=== PATIENT | female | born 1980 | race Two or more races ===

== ENCOUNTER 2025-07-20 09:21 | Emergency (ER) | payer OTHER ==
[~2025-07-20] VITALS: Ht 152.4 cm; Wt 87.3 kg
--- NOTE | 2025-07-20 09:58 | ED.PDOC ---
GI ASSESSMENT HPI Comments 44 year old female presents to the ED with a chief complaint of abdominal pain onset 1 day. Patient states she had a beer yesterday, shortly after began experiencing lower abdominal pain, currently rates pain 03/18. Since then pain has been constant, this morning she noticed blood in stool and is also experiencing nausea, chills. LMP 07/06/25. Denies fever, vomiting, diarrhea, headache, dizziness, chest pain, shortness of breath, dysuria, hematuria, hematemesis, melena. No other symptoms or modifying factors present at this time. 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 History Family History Family History: Reviewed,noncontributory to illness, No family hx of Cancer, No family hx of DM, No family hx of Heart capo, No family hx of HTN, No family hx ofKidney capo, No family hx of Liver capo, No family hx of Lung capo, No family hx of Stroke Social History Smoker: Non-Smoker Alcohol: Occasionally Drugs: Denies Drug Use Lives In: Home Constitutional: denies: chills, diaphoresis, fatigue, fever, malaise, sweats, weakness, others EENTM: denies: blurred vision, double vision, ear bleeding, ear discharge, ear drainage, ear pain, ear ringing, eye pain, eye redness, hearing loss, mouth pain, mouth swelling, nasal discharge, nose bleeding, nose congestion, nose pain, photophobia, tearing, throat pain, throat swelling, voice changes, others Respiratory: denies: cough, hemoptysis, orthopnea, SOB at rest, shortness of breath, SOB with excertion, stridor, wheezing, others Cardiovascular: denies: chest pain, dizzy spells, diaphoresis, Dyspnea on exertion, edema, irregular heart beat, left arm pain, lightheadedness, palpitations, PND, syncope, others Gastrointestinal: reports: abdominal pain, rectal bleeding; denies: abdomen distended, blood streaked bowels, constipated, diarrhea, dysphagia, difficulty swallowing, hematemesis, melena, nausea, poor appetite, poor fluid intake, rectal pain, vomiting, others Genitourinary: denies: abnormal vagina bleeding, burning, dyspareunia, dysuria, flank pain, frequency, hematuria, incontinence, pain, , vagina discharge, urgency, others Neurological: denies: dizziness, fainting, headache, left sided numbness, left sided weakness, numbness, paresthesia, pre-existing deficit, right sided numbness, right sided weakness, seizure, speech problems, tingling, tremors, weakness, others Musculoskeletal: denies: back pain, gout, joint pain, joint swelling, muscle pain, muscle stiffness, neck pain, others Integumetry: denies: bruises, change in color, change in hair/nails, dryness, laceration, lesions, lumps, rash, wounds, others Allergic/Immunocompromised: denies: Difficulty Healing, Frequent Infections, Hives, Itching, others Hematologic/Lymphatic: denies: anemia, blood clots, easy bleeding, easy bruising, swollen glands, others Endocrine: denies: excessive hunger, excessive sweating, excessive thirst, excessive urination, flushing, intolerance to cold, intolerance to heat, unexplained weight gain, unexplained weight loss, others Psychiatric: denies: anxiety, bipolar disorder, depression, hopeless, panic disorder, schizophrenia, sleepless, suicidal, others All Other Systems: Reviewed and Negative Physical Exam General Appearance: Normal HEENT: Normal ENT Inspection, Pharynx Normal, TMs Normal Neck: Full Range of Motion, Non-Tender, Normal, Normal Inspection Respiratory: Chest Non-Tender, Lungs Clear, No Accessory Muscle Use, No Respiratory Distress, Normal Breath Sounds Cardiovascular: No Edema, No JVD, No Murmur, No Gallop, Normal Peripheral Pulses, Regular Rate/Rhythm Breast Exam: Deferred Gastrointestinal: No Organomegaly, Non Tender, No Pulsatile Mass, Normal Bowel Sounds, Soft Genitalia: Deferred Pelvic: Deferred Rectal: Deferred Extremities: No calf tenderness, Normal capillary refill, Normal inspection, Normal range of motion, Non-tender, No pedal edema Musculoskeletal : Apperance: Normal Neurologic: Alert, sample display preparer II-XII nml as Tested, No Motor Deficits, Normal Affect, Normal Mood, No Sensory Deficits Cerebellar Function: Normal Reflexes: Normal Skin: Dry, Normal Color, Warm Lymphatic: No Adenopathy Was a procedure done? Was a procedure done?: No GI differential Dx Differential Diagnosis: Gastritis/PUD, Gastroenteritis, Inflammatory BD, UTI, Electrolyte Imbalance X-Ray, Labs, Meds, VS Vital Signs Date Time Temp Pulse Resp B/P (MAP) Pulse Ox O2 Delivery O2 Flow Rate FiO2 07/20/25 15:31 98.0 67 16 146/78 (100) 100 98.0 07/20/25 12:59 97.9 69 16 149/79 (102) 100 97.9 07/20/25 10:50 97.9 78 16 132/89 (103) 95 97.9 07/20/25 09:24 97.8 78 18 136/87 98 97.8 Lab Test 07/20/25 15:55 07/20/25 10:00 Range/Units Urine Color Yellow Yellow Urine Clarity Turbid H Clear Urine pH 5.5 5.0-9.0 Urine Specific [place] 1.025 1.001-1.035 Urine Protein Trace H Negative Urine Ketones 1+ H Negative Urine Blood 1+ H Negative /uL Urine Nitrite Negative Negative Urine Bilirubin Negative Negative Urine Urobilinogen Normal Negative mg/dL Urine Leukocyte Esterase Negative Negative /uL Urine RBC 2 0 - 4 /hpf Urine Microscopic WBC < 1 0-5 /HPF Urine Squamous Epithelial Cells Few <5 /hpf Urine Bacteria None seen None Seen /hpf Urine Mucus Few None Seen Urine Glucose Normal Normal mg/dL Urine Test Negative Negative White Blood Count 11.0 H 4.4-10.8 10^3/uL Red Blood Count 4.50 4.0-5.20 10^6/uL Hemoglobin 13.9 12.2-16.2 g/dL Hematocrit 40.9 36.0-46.0 % Mean Corpuscular Volume 90.8 80.0-100.0 fL Mean Corpuscular Hemoglobin 30.8 28.0-32.0 pg Mean Corpuscular Hemoglobin Concent 33.9 32.0-36.0 g/dL Red Cell Distribution Width 12.5 11.8-14.3 % Platelet Count 342 140-450 10^3/uL Mean Platelet Volume 8.6 6.9-10.8 fL Neutrophils (%) (Auto) 87.5 H 37.0-80.0 % Lymphocytes (%) (Auto) 8.4 L 10.0-50.0 % Monocytes (%) (Auto) 3.7 0.0-12.0 % Eosinophils (%) (Auto) 0.1 0.0-7.0 % Basophils (%) (Auto) 0.3 0.0-2.0 % Neutrophils # (Auto) 9.7 H 1.6-8.6 10 ^3/uL Lymphocytes # (Auto) 0.9 0.4-5.4 10 ^3/uL Monocytes # (Auto) 0.4 0-1.3 10 ^3/uL Eosinophils # (Auto) 0 0-0.8 10 ^3/uL Basophils # (Auto) 0 0-0.2 10 ^3/uL Nucleated Red Blood Cells 0.1 % Sodium Level 139 136-145 mmol/L Potassium Level 3.8 3.5-5.1 mmol/L Chloride Level 101 98-107 mmol/L Carbon Dioxide Level 23 20-31 mmol/L Anion Gap 15 5-15 Blood Urea Nitrogen 6 L 9-23 mg/dL Creatinine 0.65 0.550-1.02 mg/dL Glomerular Filtration Rate Calc 111 >90 mL/min BUN/Creatinine Ratio 9.2 L 10.0-20.0 Serum Glucose 112 H 74-106 mg/dL Calcium Level 9.4 8.7-10.4 mg/dL Total Bilirubin 0.5 0.2-1.0 mg/dL Aspartate Amino Transferase (AST) 16 13-40 U/L Alanine Aminotransferase (ALT) 12 7-40 U/L Alkaline Phosphatase 56 46-116 U/L Total Protein 7.7 5.7-8.2 g/dL Albumin 4.6 3.2-4.8 g/dL Lipase 29 12-53 U/L Current Medications Medications (Trade) Dose Ordered Sig/Wilma Route Start Time Stop Time Status Last Admin Sodium Chloride 1,000 ml @ 1,000 mls/hr Q1H ONCE IV 07/20/25 10:00 07/20/25 10:59 DC 07/20/25 10:00 Ondansetron HCl (Zofran) 4 mg ONCE ONCE IV 07/20/25 10:00 07/20/25 10:01 DC 07/20/25 10:00 Ketorolac Tromethamine (Toradol Injection) 15 mg ONCE ONCE IV 07/20/25 10:00 07/20/25 10:01 DC 07/20/25 10:00 Acetaminophen (Tylenol Tablet Or Capsule) 1,000 mg ONCE ONCE PO 07/20/25 15:45 07/20/25 15:46 DC 07/20/25 16:03 Al Hydrox/Mg Hydrox/Simethicone (Maalox Plus) 30 ml ONCE ONCE PO 07/20/25 15:45 07/20/25 15:46 DC 07/20/25 16:02 Famotidine (Pepcid Tablet) 20 mg ONCE ONCE PO 07/20/25 15:45 07/20/25 15:46 DC 07/20/25 16:02 Time of 1ST Reevaluation: 10:10 Reevaluation 1ST: Unchanged Time of 2ND Reevaluation: 18:26 Reevaluation 2ND: Improved Patient Education/Counseling: Diagnosis, Treatment, Prognosis Family Education/Counseling: No Family Present SEPSIS Sepsis Screen Date sepsis recognized/suspect: Jul 20, 2025 Time Sepsis recognized/suspect: 927 Recent Procedure: No On Antibiotic Therapy: No Respiratory Rate >20: No Heart Rate >90: No Temp<36 C (96.8 F) or >38.3 C: No SBP <90 or MAP <65 mmHG: No New Acute Mental Status Change: No Is the patient on CPAP, BIPAP,: No Physician Orders Ct Ab Pel Wo Con-No Oral Or Iv (07/20/25 12:59) Vital Signs Date Time Temp Pulse Resp B/P (MAP) Pulse Ox O2 Delivery O2 Flow Rate FiO2 07/20/25 15:31 98.0 67 16 146/78 (100) 100 98.0 07/20/25 12:59 97.9 69 16 149/79 (102) 100 97.9 07/20/25 10:50 97.9 78 16 132/89 (103) 95 97.9 07/20/25 09:24 97.8 78 18 136/87 98 97.8 Laboratory Tests Test 07/20/25 10:00 White Blood Count 11.0 10^3/uL (4.4-10.8) H Medications Medications Dose Ordered Sig/Wilma Route Start Time Stop Time Status Last Admin Dose Admin Acetaminophen 1,000 mg ONCE ONCE PO 07/20/25 15:45 07/20/25 15:46 DC 07/20/25 16:03 Al Hydrox/Mg Hydrox/Simethicone 30 ml ONCE ONCE PO 07/20/25 15:45 07/20/25 15:46 DC 07/20/25 16:02 Famotidine 20 mg ONCE ONCE PO 07/20/25 15:45 07/20/25 15:46 DC 07/20/25 16:02 Ketorolac Tromethamine 15 mg ONCE ONCE IV 07/20/25 10:00 07/20/25 10:01 DC 07/20/25 10:00 Ondansetron HCl 4 mg ONCE ONCE IV 07/20/25 10:00 07/20/25 10:01 DC 07/20/25 10:00 Sodium Chloride 1,000 ml @ 1,000 mls/hr Q1H ONCE IV 07/20/25 10:00 07/20/25 10:59 [place] 07/20/25 10:00 [facility] 1 Departure Time of Disposition: 18:30 (44-year-old female with 1 day of lower abdominal pain, bloody diarrhea. Patient with no urinary symptoms, urinalysis does not seem consistent with UTI. Given the bloody stool consider possible gastroenteritis, colitis. CBC with no evidence of critical leukocytosis or significant anemia. Metabolic panel with no evidence of acute electrolyte abnormalities or acute kidney insufficiency. CT of the abdomen and pelvis was performed which shows since that and probable fibroids. This could explain the patient's symptoms. Patient's symptoms were treated with 1 L normal saline IV fluid bolus, IV Toradol, Pepcid, Maalox, Tylenol, Zofran. Feeling significant improvement after interventions. Patient is stable for discharge for further outpatient symptomatic management. Advised to follow up with primary care doctor for further outpatient workup given findings of colitis today.) Impression: Primary Impression: Abdominal pain Additional Impressions: Bloody stool Colitis Disposition: HOME / SELF CARE / HOMELESS Condition: Stable Additional Instructions: You were evaluated today for abdominal pain and bloody stool. A CT was performed which shows a you have some mild colitis. May take Tylenol, ibuprofen as needed for abdominal cramping. You may take Maalox, Pepto-Bismol as needed for abdominal pain. However, please be sure to follow up with an outpatient primary care doctor regarding your CT findings as you may need a colonoscopy to further evaluate these findings seem today. Discharged With: Self Critical Care Note Critical Care Time?: No Stability Stability form required: No Heart Score Heart Score: Heart Score Response (Comments) Value History N/A 0 EKG N/A 0 Age N/A 0 Risk Factors N/A 0 Troponin N/A 0 Total 0 I personally scribed for RHIANNON REDDY MD ([email or web address]) on 07/20/25 at 09:58. Electronically submitted by Edelmira Ward ([email or web address]). RHIANNON REDDY MD Jul 20, 2025 09:58 MILY JALLOH MD Jul 20, 2025 18:34
[2025-07-20] MEDS: KETOROLAC TROMETH 30 MG/ML 1ML VIAL IV ONE (10:00)
[2025-07-20] MEDS: SODIUM CHLORIDE 0.9% 1,000 ML IV ONE (10:00)
[2025-07-20] MEDS: ONDANSETRON HCL 4 MG/2 ML VIAL IV ONE (10:00)
[2025-07-20 10:26] LABS: Hematocrit 40.9 % (36.0-46.0); Hemoglobin 13.9 g/dL (12.2-16.2); Mean Corpuscular Hemoglobin 30.8 pg (28.0-32.0); Mean Corpuscular Volume 90.8 fL (80.0-100.0); Nucleated Red Blood Cells % 0.1 %
[2025-07-20 10:56] LABS: Chloride 101 mmol/L (98-107); Potassium 3.8 mmol/L (3.5-5.1); Sodium 139 mmol/L (136-145)
[2025-07-20 10:57] LABS: Anion Gap 15 (5-15); Calcium 9.4 mg/dL (8.7-10.4); Carbon Dioxide 23 mmol/L (20-31)
[2025-07-20 11:02] LABS: Alkaline Phosphatase 56 U/L (46-116); BUN/Creatinine Ratio 9.2 (10.0-20.0); Lipase 29 U/L (12-53); Total Protein 7.7 g/dL (5.7-8.2)
[2025-07-20 11:03] LABS: Alanine Aminotransferase 12 U/L (7-40); Albumin 4.6 g/dL (3.2-4.8)
[2025-07-20 11:04] LABS: Bilirubin, Total 0.5 mg/dL (0.2-1.0); Blood Urea Nitrogen 6 mg/dL (9-23); Glucose 112 mg/dL (74-106)
[2025-07-20] MEDS: FAMOTIDINE 20 MG TAB PO ONE (16:02)
[2025-07-20] MEDS: MAALOX PLUS or MAALOX 30 ML PO ONE (16:02)
[2025-07-20] MEDS: ACETAMINOPHEN 500 MG TAB or CAP PO ONE (16:03)
[2025-07-20 16:34] LABS: Urine Protein, UAD TRACE (Negative)
--- NOTE | 2025-07-20 17:12 | DVH ---
CLINICAL HISTORY: abdominal pain TECHNIQUE: CT of the abdomen and pelvis was performed without IV contrast. This exam was performed according to our departmental dose optimization program. Up-to-date CT equipment and radiation dose reduction techniques are utilized as appropriate. CTDI 15.5 DLP 864 COMPARISON: None FINDINGS: Abdomen/Pelvis: The spleen, pancreas, adrenal glands, kidneys, gallbladder, and liver are grossly unremarkable. The bladder is not well distended therefore not well evaluated. There is an IUD. Globular appearance of the uterus likely representing underlying fibroids. The abdominal aorta is normal in course and caliber. There are minimal atherosclerotic calcifications. There is no free intraperitoneal air or fluid. There is no enlarged abdominal pelvic lymph node. There is no small bowel wall thickening or dilatation. The appendix is normal. There is mild descending and sigmoid colon wall thickening. Other: The imaged lower thorax is unremarkable. No acute osseous abnormality is evident. Impression: Mild descending and sigmoid colon wall thickening, favor colitis. IUD. Probable fibroids.
[2025-07-20 19:10] VITALS: BP 145/92; PULSE 79; RESP 18; TEMP 98.3; O2SAT 98
== END 2025-07-20 19:00 | disposition home or self-care (01) ==
LOC: ER 09:21
DX: K52.9 Noninfective gastroenteritis and colitis, unspecified (principal); K92.1 Melena; Z88.5 Allergy status to narcotic agent
CPT/HCPCS: 36415; 74176; 80053; 81001; 81025; 83690; 85025; 96361; 96374; 96375; 99285; J1885; J2405; J7030